=== PATIENT | female | born 1950 | race Caucasian/White ===

== ENCOUNTER 2017-02-21 11:17 | Emergency (ER) | payer MEDICARE, BC ==
--- NOTE | ~2017-02-21 | CR142 ---
[facility] A Service of [facility] RADIOLOGY TEXT RESULTS PATIENT: MARGIE CAMARENA LOCATION: [facility] : 46 UNIT #: [id number] AGE: [address]: Marcial Pires SEX: F ORDER DR: [id number] [address] [address] [id number] P MR#: [id number] Acc #: [id number] NAME: MARGIE CAMARENA : 1950 SEX: F STUDY DATE/TIME: 02/21/2017 09:41 UNIT: [facility] ROOM: STUDY DESCRIPTION: CR Hand Min 3 Views Rt Attending Physician: Marcial Pires Ordering Physician: Ed Doctor [id number] [facility], [facility] MEDICAL IMAGING REPORT This report is preliminary unless electronic signature is present EXAM Right hand 3 views, 02/21/2017 09:41 hours HISTORY 66-year-old woman who fell this morning suffering laceration to right third digit when trying to catch herself with right hand, hyperextension injury 3rd digit. COMPARISON None FINDINGS AP, lateral and oblique views demonstrate overall normal bone density. The distal radius and ulna, carpal bones and metacarpals are intact. No finger fracture is seen. There is a gauze dressing at the third finger. No foreign body. IMPRESSION No fracture, dislocation or foreign body seen. Mild to moderate osteoarthritis is present. Dictated by... Radha Johnston M.D. THIS IS AN ELECTRONICALLY VERIFIED REPORT Radha Johnston M.D. at 02/21/2017 2:30 PM ROD/andrés TD: 02/21/2017 10:34 JOB #: [id number] MEDICAL IMAGING REPORT [facility] A Service of [facility] RADIOLOGY TEXT RESULTS PATIENT: MARGIE CAMARENA LOCATION: [facility] : 46 UNIT #: [id number] AGE: [address]: Marcial Pires SEX: F ORDER DR: Page 1 of 1 COPY
== END 2017-02-21 12:10 | disposition home or self-care (01) ==
LOC: CFTX 11:17
DX: S61.212A Laceration without foreign body of right middle finger without damage to nail, initial encounter (principal); E03.9 Hypothyroidism, unspecified; I10 Essential (primary) hypertension; Z88.0 Allergy status to penicillin; W20.8XXA Other cause of strike by thrown, projected or falling object, initial encounter; Y92.009 Unspecified place in unspecified non-institutional (private) residence as the place of occurrence of the external cause
CPT/HCPCS: 12001; 73130; 99283